=== PATIENT | male | born 1975 | race Caucasian/White ===

== ENCOUNTER → 2020-12-22 | Day surgery (SDC) | payer OTHER ==
[~2020-12-22] MED LIST: HYDROCHLOROTH12.5 MG PO; METHOCARBAMOL500 MG PO; NEURONTIN300 MG PO; PRAVASTATIN SOD10 MG PO; TOPAMAX100 MG PO; ZESTRIL10 MG PO
[2020-12-22 09:04] LABS: RED BLOOD COUNT 5.32 M/UL (4.20-5.50); WHITE BLOOD COUNT 6.1 K/UL (4.5-11.0)
[2020-12-22 09:29] LABS: BUN/CREATININE RATIO 15 (0-10)
== END | disposition home or self-care (01) ==
LOC: OR 08:28
PROVIDERS: Anesthesiology Pain Medicine; Surgery
PROC: 0JH70BZ Insertion of Single Array Stimulator Generator into Back Subcutaneous Tissue and Fascia, Open Approach (ICD-10-PCS; principal; 2020-12-22 10:30)
DX: M96.1 Postlaminectomy syndrome, not elsewhere classified (principal); I10 Essential (primary) hypertension; E78.5 Hyperlipidemia, unspecified; F17.200 Nicotine dependence, unspecified, uncomplicated; E66.01 Morbid (severe) obesity due to excess calories; Z68.38 Body mass index [BMI] 38.0-38.9, adult; Z97.8 Presence of other specified devices; Z20.822 Contact with and (suspected) exposure to COVID-19; Z88.8 Allergy status to other drugs, medicaments and biological substances; Z79.899 Other long term (current) drug therapy
CPT/HCPCS: 36415; 72170; 76000; 80048; 85025; 86850; 86900; 86901; 93005; C1767; J0690; J1100; J2250; J2405; J2704; J3010; J7120